=== PATIENT | female | born 1975 | race Caucasian/White ===

== ENCOUNTER → 2018-05-19 | Outpatient (REF) | payer OTHER ==
[2018-05-19 21:36] LABS: APPEARANCE, URINE CLEAR (CLEAR); BACTERIA, URINE AUTO NEGATIVE (NEGATIVE); BILIRUBIN, URINE AUTO NEGATIVE (NEGATIVE); BLOOD, URINE BLOOD NEGATIVE (NEGATIVE); COLOR, URINE YELLOW (YELLOW); GLUCOSE, URINE (UA) AUTO NEGATIVE (NEGATIVE); KETONE, URINE AUTO NEGATIVE (NEGATIVE); LEUKOCYTE ESTERASE, URINE AUTO NEGATIVE (NEGATIVE); MUCUS, URINE SMALL (NEGATIVE); NITRITE, URINE AUTO NEGATIVE (NEGATIVE); PROTEIN, URINE AUTO NEGATIVE (NEGATIVE); RBC, URINE AUTO 0 /HPF (0-3); SPECIFIC GRAVITY URINE AUTO 1.017 (1.002-1.035); SQUAMOUS EPITHELIAL CELL UR AU 1 /HPF (0-6); UROBILINOGEN, URINE AUTO 0.2 mg/dL (0.0-2.0); WBC, URINE AUTO 0 /HPF (0-3)
== END ==
LOC: M LAB REF 11:21
PROVIDERS: ATTEND Nurse Practitioner Family
DX: N39.0 Urinary tract infection, site not specified (principal)

== ENCOUNTER → 2019-09-26 | Outpatient (CLI) | payer OTHER ==
--- NOTE | 2019-10-31 10:03 | REP ---
TWO-VIEW CHEST REASON FOR EXAM: Strain and pain. FINDINGS: The superior mediastinal structures are midline. The heart is not enlarged. The pleural angles are sharp. The lung weir are clear. The osseous structures are within normal limits. IMPRESSION: No evidence of acute cardiopulmonary disease. MTDD
--- NOTE | 2019-10-31 10:03 | REP ---
THORACIC SPINE: AP AND LATERAL VIEWS FINDINGS: Vertebral body height and alignment is within normal limits. Minimal anterior disc space narrowing seen involving the upper thoracic levels. The disc spaces are otherwise symmetric and well maintained throughout. The pedicles are intact bilaterally. There is no evidence of a fracture. IMPRESSION: Mild degenerative changes. MTDD
--- NOTE | 2019-10-31 10:04 | REP ---
LUMBAR SPINE SERIES: REASON FOR EXAMINATION: Strain of the muscle. COMPARISON: None. FINDINGS: There is mild posterior disc space narrowing at every level. Vertebral body height and alignment is within normal limits. There is partial lumbarization of S1 on the right. The pedicles are intact bilaterally. There is no evidence of spondylolysis or spondylolisthesis. IMPRESSION: Mild chronic changes, as described above. MTDD
== END ==
LOC: M WUC 14:21
PROVIDERS: ATTEND Physician Assistant
DX: S29.012A Strain of muscle and tendon of back wall of thorax, initial encounter (principal); X58.XXXA Exposure to other specified factors, initial encounter; Y92.89 Other specified places as the place of occurrence of the external cause